=== PATIENT | female | born 2000 | race African-American/Black ===

== ENCOUNTER 2021-10-09 23:18 | Inpatient (IN) | payer OTHER ==
[~2021-10-09 23:18] MED LIST: CLEOCIN300 MG PO; pre natal vit
[2021-10-09 23:46] LABS: BILIRUBIN NEGATIVE (NEGATIVE); BLOOD NEGATIVE Ery/uL (NEGATIVE); CLARITY CLEAR (CLEAR); COLOR YELLOW (YELLOW); GLUCOSE (U) NORMAL (NORMAL); LEUKOCYTES NEGATIVE Leu/uL (NEGATIVE); NITRITE NEGATIVE (NEGATIVE); PROTEIN NEGATIVE (NEGATIVE); SPECIFIC GRAVITY 1.015 (1.001-1.030); UROBILINOGEN 0.2 mg/dL (0.2-1.0)
[2021-10-09 23:49] LABS: AMPHETAMINES NEGATIVE (NEGATIVE); BARBITURATES NEGATIVE (NEGATIVE); ECSTASY (MDMA) NEGATIVE (NEGATIVE); MARIJUANA (THC) NEGATIVE (NEGATIVE); METHADONE NEGATIVE (NEGATIVE); OPIATES NEGATIVE (NEGATIVE); OXYCODONE NEGATIVE (NEGATIVE)
[2021-10-10 02:09] LABS: HCT 34.2 % (37.0-47.0); HGB 10.9 g/dl (12.5-16.0); MCH 29.3 pg (25.0-31.0); MCHC 31.9 g/dL (32.0-36.0); MCV 91.9 fL (78.0-100.0); MPV 9.4 fL (6.0-9.5); RBC 3.72 M/uL (4.20-5.40); RDW 14.3 % (11.5-14.0); WBC 13.1 K/uL (4.0-10.5)
[2021-10-10 14:15] LABS: BILIRUBIN NEGATIVE (NEGATIVE); BLOOD NEGATIVE Ery/uL (NEGATIVE); CLARITY CLEAR (CLEAR); COLOR YELLOW (YELLOW); GLUCOSE (U) NORMAL (NORMAL); LEUKOCYTES NEGATIVE Leu/uL (NEGATIVE); NITRITE NEGATIVE (NEGATIVE); PROTEIN NEGATIVE (NEGATIVE); SPECIFIC GRAVITY 1.015 (1.001-1.030); UROBILINOGEN 0.2 mg/dL (0.2-1.0)
[2021-10-11 07:33] LABS: HCT 30.3 % (37.0-47.0); HGB 9.5 g/dl (12.5-16.0); MCH 29.1 pg (25.0-31.0); MCHC 31.4 g/dL (32.0-36.0); MCV 92.9 fL (78.0-100.0); MPV 9.2 fL (6.0-9.5); RBC 3.26 M/uL (4.20-5.40); RDW 14.4 % (11.5-14.0); WBC 14.6 K/uL (4.0-10.5)
== END 2021-10-12 13:45 | disposition home or self-care (01) | DRG 787 ==
LOC: FOB 23:18 → FOD 23:18 → FOB 23:19 → FOD 10-10 11:43 → FOB 10-12 13:45
PROVIDERS: ADMIT Specialist
PROC: 10D00Z1 Extraction of Products of Conception, Low, Open Approach (ICD-10-PCS; principal; 2021-10-10 12:15)
DX: O34.211 Maternal care for low transverse scar from previous cesarean delivery (principal); D62 Acute posthemorrhagic anemia; Z37.0 Single live birth; Z3A.38 38 weeks gestation of pregnancy; Z20.822 Contact with and (suspected) exposure to COVID-19; O99.02 Anemia complicating childbirth; O13.4 Gestational [pregnancy-induced] hypertension without significant proteinuria, complicating childbirth; O36.63X0 Maternal care for excessive fetal growth, third trimester, not applicable or unspecified; D50.9 Iron deficiency anemia, unspecified
CPT/HCPCS: 36415; 80305; 81003; 84112; 86850; 86900; 86901; J0690; J1885; J2274; J2370; J2405; J2916; J3010; J7120; U0002